=== PATIENT | female | born 1955 | race Caucasian/White ===

== ENCOUNTER → 2016-12-28 | Outpatient (CLI) | payer OTHER | LOC: MW.LAB 07:35 | PROVIDERS: ATTEND Student in an Organized Health Care Education/Training Program | DX: C54.9 Malignant neoplasm of corpus uteri, unspecified (principal) | CPT/HCPCS: 36415; 82565 ==

== ENCOUNTER → 2016-12-31 | Outpatient (CLI) | payer OTHER ==
[~2016-12-31] MED LIST: Iopamidol 755 MG/ML 500 ML Multipack Bottle IVPUSH STA
--- NOTE | 2017-01-02 16:29 | CT ---
EXAM DATE: 12/31/16 PATIENT'S AGE: 61 Patient: DOC HATHAWAY Facility: [place], [place] Site Site : 1955 Study: CT Abdomen/Pelvis [id number]/28/2017 10:56:08 AM Ordering Physician: SANDRA ALEJANDRE MD Final Report: INDICATION: Malignant neoplasm of endometrium. Technique: Contrast and CT abdomen pelvis with coronal and sagittal reformat images obtained. Comparison: CT abdomen pelvis 03/11/2015. Technique: CT chest abdomen and pelvis. Findings : Normal caliber thoracic aorta. Normal heart size. No pericardial effusion or pleural effusion. No mediastinal or hilar adenopathy. Central airways are clear. No pulmonary nodules visualized. Mild fatty infiltration of the liver. Gallbladder, pancreas, spleen, adrenal glands appears unremarkable. Atherosclerotic calcification of the aorta which is non aneurysmal. The kidneys are unremarkable. Fat containing umbilical hernia. The bladder is incompletely distended. Mild bladder wall thickening. Status post hysterectomy. There is a moderate amount of fluid in the pelvis. No retroperitoneal or pelvic adenopathy seen. No suspicious bony lesions. Impression: 1. No findings for metastatic disease. 2. Hysterectomy with moderate amount of fluid in the pelvis. 3. Mild fatty infiltration of the liver. Dictated by Edith Amaya MD @ Dec 31 2016 12:32PM (Electronic Signature) Report Signed by Proxy. GUTH[facility]ORT[facility] MEDICAL CENTERJayden
--- NOTE | 2017-01-02 16:31 | CT ---
EXAM DATE: 12/31/16 PATIENT'S AGE: 61 Patient: DOC HATHAWAY Facility: [place], [place] Site Site : 1955 Study: CT Chest [id number]/28/2017 11:00:06 AM Ordering Physician: SANDRA ALEJANDRE MD Final Report: INDICATION: Malignant neoplasm of endometrium. Technique: Contrast and CT abdomen pelvis with coronal and sagittal reformat images obtained. Comparison: CT abdomen pelvis 03/11/2015. Technique: CT chest abdomen and pelvis. Findings : Normal caliber thoracic aorta. Normal heart size. No pericardial effusion or pleural effusion. No mediastinal or hilar adenopathy. Central airways are clear. No pulmonary nodules visualized. Mild fatty infiltration of the liver. Gallbladder, pancreas, spleen, adrenal glands appears unremarkable. Atherosclerotic calcification of the aorta which is non aneurysmal. The kidneys are unremarkable. Fat containing umbilical hernia. The bladder is incompletely distended. Mild bladder wall thickening. Status post hysterectomy. There is a moderate amount of fluid in the pelvis. No retroperitoneal or pelvic adenopathy seen. No suspicious bony lesions. Impression: 1. No findings for metastatic disease. 2. Hysterectomy with moderate amount of fluid in the pelvis. 3. Mild fatty infiltration of the liver. Dictated by Edith Amaya MD @ Dec 31 2016 12:41PM (Electronic Signature) Report Signed by Proxy. SONG
== END ==
LOC: MW.DI 09:08
PROVIDERS: ATTEND Student in an Organized Health Care Education/Training Program
DX: C54.1 Malignant neoplasm of endometrium (principal)
CPT/HCPCS: 71260; 74177; Q9967